=== PATIENT | male | born 1975 | race African-American/Black ===

== ENCOUNTER 2017-05-30 18:46 | Emergency (ER) | payer OTHER, SELFPAY ==
[2017-05-30 19:33] LABS: #Basophils 0.1 thou/uL (0.0-0.2); #Eosinphils 0.3 thou/uL (0.0-0.7); #Monocytes 0.5 thou/uL (0.11-0.59); #Neutrophils 4.7 thou/uL (1.40-6.50); %Eosinophils 3.5 % (0.0-10.0); %Monocytes 4.7 % (0.0-10.0); %Neutrophils 48.8 % (42.0-75.0); Mean Corpuscular HGB CONC 35.4 g/dL (32.0-36.0); Mean Corpuscular Hemoglobin 34.2 pg (27.0-31.0); Mean Corpuscular Volume 96.6 fl (80.0-94.0); Mean Platelet Volume 7.3 fL (7.4-10.4); Platelet Count 242 thou/uL (130-400); RBC Distribution Width 11.9 % (11.5-14.5); Red Blood Cell (RBC) Count 4.39 mill/uL (4.70-6.10); White Blood Cell (WBC) Count 9.6 thou/uL (4.8-10.8)
[2017-05-30 19:51] LABS: ALT (SGPT) 25 U/L (8-55); AST (SGOT) 22 U/L (5-34); Alkaline Phosphatase 62 U/L (40-150); Anion Gap 12 mmol/L (10-20); BUN (Urea Nitrogen) 9 mg/dL (8.9-20.6); Bilirubin, Total 0.3 mg/dL (0.2-1.2); CK (CPK) 164 U/L (30-200); Calc. Creatinine Clearance 0 mL/min (70-130); Calcium 9.3 mg/dL (7.8-10.44); Carbon Dioxide 23 mmol/L (22-29); Chloride 107 mmol/L (98-107); Estimated GFR-MDRD Greater than 90; Globulin 3.3 g/dL (2.4-3.5); Glucose 111 mg/dL (70-105); Potassium 4.1 mmol/L (3.5-5.1); Protein, Total 7.3 g/dL (6.0-8.3); Sodium 138 mmol/L (136-145)
[2017-05-30 20:01] LABS: CKMB 1.1 ng/mL (0-6.6); Troponin I Less than 0.010 ng/mL (< 0.028)
--- NOTE | 2017-05-30 20:26 | RAD ---
PA AND LATERAL CHEST X-RAY 05/30/17 HISTORY: Chest pain with pain in middle of sternum. COMPARISON: 09/18/08. Cardiac silhouette and pulmonary vasculature are within normal limits. The lungs remain clear. There has been no interval change compared to the study in 2008. IMPRESSION: No acute cardiopulmonary process. POS: [facility]
[2017-05-30] MEDS ORDERED: Mag-Al 1200 mg/1200 mg/30 ML UDCUP ONE (20:30)
[2017-05-30] MEDS ORDERED: Lidocaine Viscous Sol 2% 15 ml UD Cup ONE (20:30)
--- NOTE | 2017-05-31 15:38 | EKG ---
Test Reason : CHEST PAIN Blood Pressure : / mmHG Vent. Rate : 064 BPM Atrial Rate : 064 BPM P-R Int : 180 ms QRS Dur : 110 ms QT Int : 418 ms P-R-T Axes : 034 -13 016 degrees QTc Int : 431 ms Normal sinus rhythm Inferior infarct , age undetermined Abnormal ECG Confirmed by NALLELY WALDRON, ISELA Reyes ([id number]), editor managing newspaper RUBEN BARRERA ([id number]) on 05/31/2017 3:38:20 PM Referred By: TRIAGE Confirmed By:ISELA BROWNING MD
== END 2017-05-30 21:05 | disposition home or self-care (01) ==
LOC: ERS 18:46
DX: R07.9 Chest pain, unspecified (principal); F17.210 Nicotine dependence, cigarettes, uncomplicated; F41.9 Anxiety disorder, unspecified; Z79.899 Other long term (current) drug therapy
CPT/HCPCS: 36415; 71046; 80053; 82550; 82553; 83690; 84484; 85025; 93005; 99406

== ENCOUNTER 2020-07-24 18:07 | Emergency (ER) | payer SELFPAY ==
[2020-07-24] MEDS ORDERED: Albuterol 200 PUFF (6.7GM INHALER) ONE (18:56)
[2020-07-25 01:21] LABS: SARS-CoV-2 PCR by NAA Not Detected (NotDetected)
== END 2020-07-24 19:09 | disposition home or self-care (01) ==
LOC: ERS 18:07
DX: J45.909 Unspecified asthma, uncomplicated (principal); F17.210 Nicotine dependence, cigarettes, uncomplicated
CPT/HCPCS: 71045; 87635; U0003; U0005